=== PATIENT | male | born 1995 | race Caucasian/White ===

== ENCOUNTER 2021-08-24 21:46 | Emergency (ER) | payer OTHER ==
[~2021-08-24] VITALS: Ht 167.6 cm; Wt 88.5 kg
[2021-08-24 22:09] VITALS: BP 136/94
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
--- NOTE | 2021-08-24 23:26 | RAD ---
EXAM: AP, lateral, oblique and sunrise views of the right knee. DATE: 08/24/2021 10:48 PM INDICATION: Chronic left knee pain, worsening COMPARISON: No Prior FINDINGS: No acute fracture or dislocation. No joint effusion. Joint spaces are preserved without significant degenerative/proliferative change. Neutral patellar tracking. IMPRESSION: No acute fracture or dislocation. Electronically signed by: Keanu Rodriguez MD (08/24/2021 11:23 PM) BETSY
--- NOTE | 2021-08-24 23:26 | RAD ---
EXAM: 3 Views Left Shoulder DATE: 08/24/2021 10:48 PM INDICATION: Reason: pain with past rotator cuff injury / Spl. Instructions: / History: COMPARISON: No Prior FINDINGS: There is no evidence for acute fracture or dislocation. AC joint is congruent. Humeral head is not hi gh riding. IMPRESSION: 1. No acute fracture or dislocation. Electronically signed by: Keanu Rodriguez MD (08/24/2021 11:23 PM) BETSY
== END 2021-08-24 23:50 | disposition home or self-care (01) ==
LOC: ER 21:46
DX: M25.562 Pain in left knee (principal); M25.512 Pain in left shoulder; G89.11 Acute pain due to trauma; Z88.2 Allergy status to sulfonamides; V19.49XA Pedal cycle driver injured in collision with other motor vehicles in traffic accident, initial encounter; Y92.488 Other paved roadways as the place of occurrence of the external cause; Y93.89 Activity, other specified; Y99.8 Other external cause status
CPT/HCPCS: 73030; 73564; 99284

== ENCOUNTER 2021-12-22 19:56 | Emergency (ER) | payer OTHER ==
[~2021-12-22] VITALS: Ht 167.6 cm; Wt 83.1 kg
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
[2021-12-22 20:15] VITALS: BP 132/97
[2021-12-22] MEDS: KETOROLAC 60 MG/2 ML VIAL. IM ONE (20:38)
[2021-12-22] MEDS: ORPHENADRINE CITRATE 60 MG/2 ML VIAL. IM ONE (20:38)
[2021-12-22] MEDS: MORPHINE SULFATE 4 MG/ML DISP.SYRIN. SQ ONE (20:39)
[2021-12-22] MEDS ORDERED: MORPHINE SULFATE 2 MG/ML DISP.SYRIN. ONE (20:45)
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
[2021-12-22] MEDS ORDERED: CYCL10TA19 PO (22:08)
== END 2021-12-22 22:36 | disposition home or self-care (01) ==
LOC: ER 19:56
DX: S13.4XXA Sprain of ligaments of cervical spine, initial encounter (principal); S33.5XXA Sprain of ligaments of lumbar spine, initial encounter; S20.219A Contusion of unspecified front wall of thorax, initial encounter; Z88.2 Allergy status to sulfonamides; V89.2XXA Person injured in unspecified motor-vehicle accident, traffic, initial encounter; Y93.I9 Activity, other involving external motion; Y92.89 Other specified places as the place of occurrence of the external cause; Y99.8 Other external cause status
CPT/HCPCS: 71046; 72125; 72131; 96372; 99284; J1885; J2270; J2360